=== PATIENT | female | born 1975 | race Caucasian/White ===

== ENCOUNTER 2021-07-17 13:09 | Outpatient (CLI) | payer MEDICARE, MEDICAID, SELFPAY | END 2021-07-17 13:10 | disposition home or self-care (01) | LOC: ANHBWCAUD 13:09 | PROVIDERS: PCP Internal Medicine; Visit Provider Otolaryngology | DX: H90.3 Sensorineural hearing loss, bilateral (principal) | CPT/HCPCS: 92557; 92567 ==

== ENCOUNTER 2021-09-08 09:30 | Outpatient (RCR) | payer MEDICARE, MEDICAID, SELFPAY | END 2021-11-09 23:59 | disposition home or self-care (01) | LOC: ANHBWCAUD 09:30 | PROVIDERS: PCP Internal Medicine; Visit Provider Otolaryngology | DX: Z46.1 Encounter for fitting and adjustment of hearing aid (principal) | CPT/HCPCS: 99199; V5160; V5261 ==

== ENCOUNTER 2021-09-28 09:53 | Emergency (ER) | payer MEDICARE, SELFPAY ==
--- NOTE | 2021-09-28 09:54 | ED.SKABFB ---
HPI - Skin/Abscess/Foreign Bdy General Chief complaint: Wound/Laceration Stated complaint: stitches removed Time Seen by Provider: 09/28/21 09:54 Source: patient and RN notes reviewed History of Present Illness HPI narrative: Patient is a 46-year-old female who presents the urgent care requesting suture removal from the left ear. Patient states the sutures were due to come out either today or yesterday. States that she had a small cyst removed from the left ear by her surgeon last Tuesday and is unable to get there to have the sutures removed. Patient denies of any issues, redness, pain or drainage from the area. No other acute complaints. No acute distress noted. Patient aware of the plan of care. Some parts of this dictation were generated by voice recognition software and may contain typographical and/or grammatical inaccuracies. Related Data Home Medications Medication Instructions Recorded Confirmed amitriptyline 25 mg tablet tablet 09/28/21 budesonide-formoterol HFA 160 inh inhalation 09/28/21 mcg-4.5 mcg/actuation aerosol inhaler (Symbicort) duloxetine 30 mg capsule,delayed cap PO 09/28/21 release ergocalciferol (vitamin D2) 1,250 cap 09/28/21 mcg (50,000 unit) capsule esomeprazole magnesium 40 mg cap 09/28/21 capsule,delayed release famotidine 40 mg tablet tablet 09/28/21 gabapentin 400 mg capsule cap 09/28/21 ipratropium 0.5 mg-albuterol 3 mg ml inhalation 09/28/21 (2.5 mg base)/3 mL nebulization soln potassium chloride 20 mEq tablet PO 09/28/21 tablet,extended release(part/cryst) (Klor-Con M) pravastatin 40 mg tablet tablet 09/28/21 trazodone 100 mg tablet tablet 09/28/21 Allergies Allergy/AdvReac Type Severity Reaction Status Date / Time Penicillins Allergy Swelling Verified 09/28/21 10:12 Review of Systems Review of Systems: CONSTITUTIONAL: Denies fever, chills, or sweats. EYES: Denies visual changes, redness, or discharge. ENT: Denies rhinorrhea, congestion, sore throat, or otalgia. CARDIOVASCULAR: Denies chest pain, palpitations, or edema. RESPIRATORY: Denies cough or dyspnea. GASTROINTESTINAL: Denies abdominal pain, nausea, vomiting, or diarrhea. GENITOURINARY: Denies dysuria or hematuria. SKIN: Requesting suture removal from the left ear MUSCULOSKELETAL: Denies back pain, joint pain, or myalgia. NEUROLOGIC: Denies headache, numbness, or weakness. All other systems reviewed are negative, except as documented in HPI. PMFSH Comments At the time of my signature, I reviewed and agree with the nursing past medical, surgical, social, and family history. There is no relevant family history pertinent to the patient complaint. Exam Narrative: GENERAL: This is a well-nourished, well-developed patient, in no apparent distress. HEAD: normocephalic, atraumatic. EYES: PERRL. Sclera clear/white. Vision is grossly intact. EARS: External ears normal, auditory canals clear and without drainage NOSE: External nose normal with no obvious nasal discharge, nares without redness, no rhinorrhea. THROAT: Mucous membranes moist NECK: Neck supple SKIN: 3 sutures to the left helix with approximated wound without redness or drainage. Warm, intact with no suspicious lesions or rash, good texture and turgor. NEURO: awake, alert, and oriented to person, place and time. There were no obvious focal neurologic abnormalities. EXTREMITIES: No clubbing, cyanosis, or edema. Course Course Level of Care: Express Care Visit Vital Signs Vital signs: Vital Signs Temperature 99.1 F 09/28/21 10:07 Pulse Rate 101 H 09/28/21 10:07 Respiratory Rate 20 09/28/21 10:07 Blood Pressure 138/66 09/28/21 10:07 Pulse Oximetry 93 09/28/21 10:07 Oxygen Delivery Room Air 09/28/21 10:07 Temperature 99.1 F 09/28/21 10:07 Pulse Rate 101 H 09/28/21 10:07 Respiratory Rate 20 09/28/21 10:07 Blood Pressure 138/66 09/28/21 10:07 Pulse Oximetry 93 09/28/21 10:07 Oxygen Delivery
[2021-09-28 10:07] VITALS: BP 138/66; PULSE 101; RESP 20; TEMP 37.3; O2SAT 93
== END 2021-09-28 10:25 | disposition home or self-care (01) ==
PROVIDERS: Emergency Provider Nurse Practitioner Family
DX: Z48.02 Encounter for removal of sutures (principal); E78.00 Pure hypercholesterolemia, unspecified; J44.9 Chronic obstructive pulmonary disease, unspecified; K21.9 Gastro-esophageal reflux disease without esophagitis; M06.9 Rheumatoid arthritis, unspecified; M81.0 Age-related osteoporosis without current pathological fracture
CPT/HCPCS: 99211; G0463

== ENCOUNTER 2022-10-27 12:30 | Outpatient (RCR) | payer MEDICARE, SELFPAY | END 2022-12-28 23:59 | disposition home or self-care (01) | LOC: ANHBWCAUD 12:30 | PROVIDERS: PCP Internal Medicine; Visit Provider Internal Medicine | DX: Z46.1 Encounter for fitting and adjustment of hearing aid (principal) | CPT/HCPCS: 99199 ==

== ENCOUNTER 2022-10-29 09:46 | Outpatient (CLI) | payer MEDICARE, SELFPAY ==
--- NOTE | 2022-10-29 09:59 | ECG_ITS ---
Measurements Intervals [place] Rate: 92 P: 70 NC: 177 QRS: 62 QRSD: 99 T: 62 QT: 363 QTc: 451 Interpretive Statements SINUS RHYTHM NORMAL ECG NO PREVIOUS ECG AVAILABLE FOR COMPARISON Electronically Signed On 10-29-2022 10:57:31 CDT by Buster Perez D.O.
== END 2022-10-29 09:47 | disposition home or self-care (01) ==
LOC: ANHSURGERY 09:50
PROVIDERS: PCP Internal Medicine; Visit Provider Otolaryngology
DX: E78.00 Pure hypercholesterolemia, unspecified (principal); Z01.818 Encounter for other preprocedural examination
CPT/HCPCS: 93005

== ENCOUNTER 2022-11-05 02:30 | Day surgery (SDC) | payer MEDICARE, SELFPAY ==
[2022-10-28 11:26] VITALS: BMI 31.7
--- NOTE | 2022-10-28 11:32 | PC.NURSE ---
Report to the Outpatient Waiting Room, entrance under the green pavilion located off [facility], at time 9:30 on date 11/05/22. Planned Procedure Time: 11:30. Time changes happen often and if your time is changed the preop area will call you the afternoon before. - You and your visitor will be asked to self-screen and do not enter if you have any COVID symptoms. - A mask is optional within the hospital at this time. Patients may have clear liquids (water, carbonated beverages, clear teas, apple juice) until 3 hours prior to surgery (8:30) with a maximum of 20 ounces. - No food from midnight until time of surgery Take the following medications with a SIP of water the morning of surgery: INHALERS, DULOXETINE DO NOT STOP ANY OF YOUR OTHER PRESCRIPTION MEDICATIONS PRIOR TO SURGERY ?EXCEPT THE FOLLOWING Medications to discontinue per physician: VITAMINS Date to take last dose: 11/01/22 Please no make-up, nail hungarian, hairspray, perfume, deodorant, or body powder the day of surgery. No jewelry (including any body piercings) or valuables the day of surgery, leave them at home. Please take a shower or bath the night before, or the morning of, surgery with an antibacterial soap. Wear comfortable, loose fitting clothing. - Jewelry must be removed prior to entering the operating room. Rings and piercings that are not removed may be cut off. - The hospital will not accept responsibility for valuables. - Please leave all valuables, including medications, at home the day of surgery. If you are going home after surgery, a licensed diesel truck driver must drive you home. - NO public transportation without another adult if you receive anesthesia. - We recommend that an adult stay with you for 24 hours following discharge. - We also recommend that you do not drive, make important decision, drink alcoholic beverages, or take any drugs that were not prescribed by your health care provider for at least 24 hours after your discharge time. Follow any additional instructions given to you from your surgeon. If you or anyone in your household have experienced Covid symptoms in the past week, please notify your surgeon or the nurse liaison at the phone number below for possible testing. Telephone instructions given to PT - MANJIT WILSON and asked if any additional questions and then verbalized understanding. Patient advised to call surgeon office or pre surgery nurse liaison [phone] if any additional questions.
--- NOTE | 2022-11-04 12:45 | WPDANESEPPF ---
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 Patient Data Age: 47 Gender: F Height: 1.63 m Weight: 83.95 kg Allergies Allergy/AdvReac Type Severity Reaction Status Date / Time Penicillins Allergy Swelling Verified 10/28/22 11:23 Home Medications Medication Instructions Recorded Confirmed Type amitriptyline 25 mg tablet 1 tablet PO HS 09/28/21 10/28/22 History budesonide-formoterol HFA 160 2 inh inhalation BID 09/28/21 10/28/22 History mcg-4.5 mcg/actuation aerosol inhaler (Symbicort) ergocalciferol (vitamin D2) 1,250 See Rx Instructions .Route .COMPLEX 09/28/21 10/28/22 History mcg (50,000 unit) capsule esomeprazole magnesium 40 mg 1 cap PO DAILY 09/28/21 10/28/22 History capsule,delayed release famotidine 40 mg tablet 1 tablet PO BID 09/28/21 10/28/22 History ipratropium 0.5 mg-albuterol 3 mg 3 ml inhalation PRN 09/28/21 10/28/22 History (2.5 mg base)/3 mL nebulization soln potassium chloride 20 mEq 1 tablet PO PRN 09/28/21 10/28/22 History tablet,extended release(part/cryst) (Klor-Con M) pravastatin 40 mg tablet 1 tablet PO HS 09/28/21 10/28/22 History mupirocin 2 % topical ointment 1 applic topical BID #22 grams 09/13/22 10/28/22 Rx duloxetine 60 mg capsule,delayed 60 mg PO DAILY 10/28/22 10/28/22 History release Patient hx anesthesia problems: none Family hx anesthesia problems: none Results Review: All pre-operative results and documents have been reviewed as part of the pre-operative evaluation. [facility] Past Medical History Medical History Allergies Anxiety Arthritis Asthma COPD (chronic obstructive pulmonary disease) Counseling on health promotion and disease prevention Current smoker Encounter for medication management Encounter for screening for other viral diseases Fibromyalgia Generalized osteoarthritis of multiple sites GERD (gastroesophageal reflux disease) Hyperlipidemia Mycobacterium avium complex Osteoporosis Family History Family History (Updated 09/13/22 @ 08:12 by Hetal Hammer CMA) Son No problems noted. Sibling Asthma Cervical cancer Father Diabetes mellitus Cerebrovascular accident Alcoholism Hypertension Heart disease Mother COPD (chronic obstructive pulmonary disease) Social History Social History (Updated 09/13/22 @ 08:09 by Hetal Hammer CMA) Smoking packs per day: 0.5 Smoking cigarettes per day: 10.0 Years smoked: 20 Smoking pack-years: 10.00 Smoking status: Current every day smoker Tobacco type: cigarettes Alcohol intake: never Substance use: current Substance use type: marijuana Lack of Transportation: No Lack of Food: Never True Current Housing: I Have Housing Concerned About Future Housing: No Difficulty Paying Gas/Electric Bills: No Difficulty Paying for Meds: No Currently Unemployed: No Education: High School Diploma/GED Difficulty w/ Childcare or Family Care: No Living arrangements: with family Spiritual care concerns: No Anes - Eval Final PreProcedure Day of Procedure 11/04/22 12:45 Patient weight: obese Heart: regular rate and rhythm Lungs: clear to auscultation and normal air movement Airway: Mallampati scale class II Neurological: alert and oriented Last oral intake: >/= 8 hours ASA classification: III Emergent: no Anesthetic plan: proceed Anesthesia type and monitoring: general ETT Results Review: All pre-operative results and documents have been reviewed as part of the pre-operative evaluation. Informed Consent: The patient's anesthetic plan and its attendant risks and
--- NOTE | 2022-11-04 13:58 | PM.IMHP ---
H&P: HPI History of Present Illness Date/Time: 11/04/22 13:58 Chief Complaint: Nasal obstruction nasal congestion septal deviation turbinate hypertrophy left ear lesion Narrative: planned procedure Review of Systems Review of Systems: All systems reviewed & are unremarkable except as noted in HPI and below PMFSH Past Medical History Medical History Allergies Anxiety Arthritis Asthma COPD (chronic obstructive pulmonary disease) Counseling on health promotion and disease prevention Current smoker Encounter for medication management Encounter for screening for other viral diseases Fibromyalgia Generalized osteoarthritis of multiple sites GERD (gastroesophageal reflux disease) Hyperlipidemia Mycobacterium avium complex Osteoporosis Family History Family History (Updated 09/13/22 @ 08:12 by Hetal Hammer CMA) Son No problems noted. Sibling Asthma Cervical cancer Father Diabetes mellitus Cerebrovascular accident Alcoholism Hypertension Heart disease Mother COPD (chronic obstructive pulmonary disease) Social History Social History (Updated 09/13/22 @ 08:09 by Hetal Hammer CMA) Smoking packs per day: 0.5 Smoking cigarettes per day: 10.0 Years smoked: 20 Smoking pack-years: 10.00 Smoking status: Current every day smoker Tobacco type: cigarettes Alcohol intake: never Substance use: current Substance use type: marijuana Lack of Transportation: No Lack of Food: Never True Current Housing: I Have Housing Concerned About Future Housing: No Difficulty Paying Gas/Electric Bills: No Difficulty Paying for Meds: No Currently Unemployed: No Education: High School Diploma/GED Difficulty w/ Childcare or Family Care: No Living arrangements: with family Spiritual care concerns: No Meds Home Medications and Allergies Home Medications Medication Instructions Recorded Confirmed Type amitriptyline 25 mg tablet 1 tablet PO HS 09/28/21 10/28/22 History budesonide-formoterol HFA 160 2 inh inhalation BID 09/28/21 10/28/22 History mcg-4.5 mcg/actuation aerosol inhaler (Symbicort) ergocalciferol (vitamin D2) 1,250 See Rx Instructions .Route .COMPLEX 09/28/21 10/28/22 History mcg (50,000 unit) capsule esomeprazole magnesium 40 mg 1 cap PO DAILY 09/28/21 10/28/22 History capsule,delayed release famotidine 40 mg tablet 1 tablet PO BID 09/28/21 10/28/22 History ipratropium 0.5 mg-albuterol 3 mg 3 ml inhalation PRN 09/28/21 10/28/22 History (2.5 mg base)/3 mL nebulization soln potassium chloride 20 mEq 1 tablet PO PRN 09/28/21 10/28/22 History tablet,extended release(part/cryst) (Klor-Con M) pravastatin 40 mg tablet 1 tablet PO HS 09/28/21 10/28/22 History mupirocin 2 % topical ointment 1 applic topical BID #22 grams 09/13/22 10/28/22 Rx duloxetine 60 mg capsule,delayed 60 mg PO DAILY 10/28/22 10/28/22 History release Allergies Allergy/AdvReac Type Severity Reaction Status Date / Time Penicillins Allergy Swelling Verified 10/28/22 11:23 Exam Narrative: left ear lesion septal deviation turbinate hypertrophy Assessment and Plan Assessment and plan (1) Chondrodermatitis nodularis chronica helicis: Code(s): H61.009 - Unspecified perichondritis of external ear, unspecified ear Status: Acute Assessment and Plan: plan OR endoscopic assisted septoplasty turbinate reduction with outfracture excision of left ear lesion. Total operative time 2:00 a.m. or loss. Risks were discussed including bleeding infection septal perforation failure to resolve symptoms we hypertrophy of turbinates CSF leak brain brain damage change in vision total blindness need for further procedures the annoyance and pain of splint placement need to keep splints in place for 5-7 days. Inherent risks narcotic use. Time-out for time off school. Re-for
[2022-11-05] VITALS (8 sets, daily range): BP systolic 118–138; BP diastolic 56–75; PULSE 81–92; RESP 12–22; TEMP 36.3–36.6; O2SAT 94–100
--- NOTE | 2022-11-05 07:17 | WPDHPUPDATE1 ---
History and Physical Update Update Date/Time: 11/05/22 07:17 History and Physical has been reviewed, including an updated exam of the patient. There are NO changes in the patient's condition. Risks, benefits, and alternatives have been discussed and questions answered. Patient agrees to proceed with procedure.
[2022-11-05] MEDS: ACETAMINOPHEN 500 MG TABLET 1000 MG PO (09:00)
[2022-11-05] MEDS: LACTATED RINGERS 1,000 ML 30 ML IV CONT ×2 (09:30→11:21)
[2022-11-05] MEDS: ceFAZolin 2 GM/D5W 50 ML 2 GM/50 ML BAG IVPB (10:10)
[2022-11-05] MEDS: OXYMETAZOLINE HCL 0.05% NAS 15 ML BTL (*BKC) 1 SPRAY NASAL (10:36)
[2022-11-05] MEDS: LIDO 1%/EPINEPHRINE 1:100,000 50 ML VIAL 20 ML INFILTRATE (11:13)
[2022-11-05] MEDS: MUPIROCIN 2% OINT 22 GM TUBE 1 APPLIC EACH NARE (11:13)
--- NOTE | 2022-11-05 11:40 | P.OP_ITS ---
Procedure Note - Detailed Date of Procedure 11/05/22 Pre-op Diagnosis septal deviation turniate hypertropy Post-op Diagnosis Same Procedure Performed endoscopic assisted septoplasty, turbinate reduction bilaterally with outfracture Surgeon Carroll Reyna MD Anesthesia General Indications see above Findings severely deviated right septum, large turbinates Description of Procedure patient identified consent verified in the preoperative holding area. Patient brought operating room. Time-out performed. General anesthesia induced endotracheal tube secured airway. Patient prepped draped positioned procedure confirm 2nd time-out performed. Afrin-soaked pledgets placed for 5 minutes then removed. 0 degree endoscope utilized 7.5 cc 1% lidocaine 1 100,000 parts epinephrine injected the bilateral nasal septum and heads of the inferior turbinates. [place] incision made very anterior left-sided left nasal septal flap elevated 7 [place] suction. Osteotome utilized to outline septum and crossover. Right nasal septal flap elevated with 7 [place] suction. Deviated septum removed Mary forceps osteotome [place] forceps and mallet. Small tears on the right side none on the left side. [place] incision then closed with 3 interrupted 5 0 fast gut sutures. Turbinates reduced in the submucosal plane using microdebrider with turbinate blade this was bilateral. Then outfractured with [place] elevator. [place] tips cauterized with [place] suction electrocautery. Entry points also cauterized. Bilateral nasal passages suction the posterior choana. [place] splints placed bilaterally sutured a nteriorly using a 3-0 mattressed nylon suture. I performed all dictated portions procedure no complications. Blood loss about 20 cc. Care the patient back to Anesthesiology. Patient taken to PACU. Estimated Blood Loss 20 Drains No Packing No Pathology None sent Complications No immediate complications Condition Stable Disposition PACU [facility] Billing Surgery - Charge Forward: Surgery Billing
[2022-11-05] MEDS: fentaNYL CITRATE INJ (*CRX) 100 MCG/2 ML VIAL 25 MCG IV PUSH ×3 (11:49→12:06)
[2022-11-05] MEDS: oxyCODONE HCL (*CRX) 5 MG TAB IR PO (12:51)
== END 2022-11-05 13:18 | disposition home or self-care (01) ==
PROVIDERS: PCP Internal Medicine; Visit Provider Otolaryngology
PROC: (CPT 30520; principal; 2022-11-05 10:30)
PROC: (CPT 30520; 2022-11-05 10:30)
DX: H61.002 Unspecified perichondritis of left external ear (principal); J34.2 Deviated nasal septum; J34.3 Hypertrophy of nasal turbinates; R09.81 Nasal congestion; J34.89 Other specified disorders of nose and nasal sinuses; F17.210 Nicotine dependence, cigarettes, uncomplicated; J44.9 Chronic obstructive pulmonary disease, unspecified; K21.9 Gastro-esophageal reflux disease without esophagitis; E78.5 Hyperlipidemia, unspecified
CPT/HCPCS: 30520; 30930; 93005; A9270; J0330; J0690; J1100; J2250; J2405; J2704; J3010; J7120